=== PATIENT | male | born 1955 | race Caucasian/White ===

== ENCOUNTER → 2021-06-21 | Outpatient (CLI) | payer BC ==
[~2021-06-21] MED LIST: ASPIR 8181 MG PO; BENADRYL ALLERG25 MG PO; CYANOCOBAL1000 MCG/1 INJ; EPIPEN 2-P0.3 MG/0.3 INJ; FENOFIBRATE160 MG PO; LIPITOR20 MG PO; NORVASC2.5 MG PO; OMEPRAZOLE40 MG PO; PREDNISONE50 MG PO; ZYLOPRIM300 MG PO
== END ==
LOC: KOH-I 13:30
DX: F17.210 Nicotine dependence, cigarettes, uncomplicated (principal); R91.8 Other nonspecific abnormal finding of lung field
CPT/HCPCS: 71271